=== PATIENT | male | born 1940 | race Caucasian/White ===

== ENCOUNTER 2021-07-19 17:18 | Emergency (ER) | payer MEDICARE ==
[~2021-07-19] VITALS: Ht 177.8 cm; Wt 100.0 kg
[~2021-07-19 17:18] MED LIST: ACTOS45 MG OR; BL ADULT ASA81 MG OR; CENTRUM OR; CIALIS5 MG PO; CIPRO500 MG OR; COREG6.25 MG PO; DESONIDE0.05 % EX; DIOVAN HCT160 MG/25 OR; FIORICET PO; FLUTICASONE50 MCG; GLYBURIDE2.5 MG OR; LANTUS SOL100 UNIT/M SC; LOSARTAN POTASS50 MG PO; MACRODANTIN100 MG; MAREPA1000 MG OR; METFORMIN1000 MG OR; PRAVASTATIN40 MG PO; PROZAC20 MG PO; RELPAX40 MG OR; TAMSULOSIN0.4 MG PO; VERAPAMIL OR; VIAGRA100 MG OR
[2021-07-19 19:06] LABS: HEMOGLOBIN 11.2 g/dl (14.0-18.0); IMMATURE GRANULOCYTES 0.2 % (0.0-5.0); MEAN CELL VOLUME 85.2 fL CALC (80.0-100.0); MEAN CORPUSCULAR HGB 27.1 pG CALC (26.0-32.0); MEAN CORPUSCULAR HGB CONC 31.8 g/dL CAL (32.0-36.0); NEUT# 4.81 thou/uL (1.82-7.42); RED BLOOD COUNT 4.13 mill/uL (4.70-6.10); RED CELL DISTRI WIDTH 14.9 % (11.5-15.5)
[2021-07-19 19:09] LABS: HEMATOCRIT 35.2 % (39.0-50.0)
[2021-07-19 19:24] LABS: ALBUMIN 3.6 g/dL (3.2-5.0); ALKALINE PHOSPHATASE 74 u/l (38-126); ANION GAP 8 (6-22 (CALC)); BUN 39 mg/dL (8-23); BUN/CREATININE RATIO 21 (12-20 (CALC)); CARBON DIOXIDE 34 mmol/l (22-30); CHLORIDE 99 mmol/l (95-108); CREATININE 1.8 mg/dL (0.7-1.3); GFR 37 ML/MIN (>=60 (CALC)); GFR FOR AFR.AMER. 44 ML/MIN (>=60 (CALC)); SGOT/AST 31 u/l (19-48); SODIUM 137 mmol/l (137-146); TOTAL PROTEIN 6.2 g/dL (6.3-8.2)
[2021-07-19 19:26] LABS: BILIRUBIN, TOTAL 0.3 mg/dL (0.0-1.4)
[2021-07-19 19:35] LABS: MYOGLOBIN 90 ng/mL (0 - 121)
[2021-07-19 20:05] VITALS: BP 154/69
== END 2021-07-19 20:25 | disposition home or self-care (01) ==
LOC: ED 17:18
PROVIDERS: Family Medicine
DX: I95.1 Orthostatic hypotension (principal); N17.9 Acute kidney failure, unspecified; I10 Essential (primary) hypertension; I48.91 Unspecified atrial fibrillation; Z95.0 Presence of cardiac pacemaker

== ENCOUNTER 2021-07-22 10:00 | Observation (INO) | payer MEDICARE ==
[~2021-07-22] VITALS: Ht 177.8 cm; Wt 100.0 kg
--- NOTE | 2021-07-22 10:05 | NUR ---
PATIENT TO ROOM VIA WHEELCHAIR.
--- NOTE | 2021-07-22 11:00 | NUR ---
Reassessment of patient completed. No distress noted.
[2021-07-22] MEDS ORDERED: FUROSEMIDE20 MG PO (11:13)
[2021-07-22] MEDS ORDERED: ELIQUIS5 MG PO (11:13)
[2021-07-22] MEDS ORDERED: TAMSULOSIN0.4 MG PO (11:14)
[2021-07-22 11:15] LABS: HEMATOCRIT 37.2 % (39.0-50.0); HEMOGLOBIN 11.7 g/dl (14.0-18.0); IMMATURE GRANULOCYTES 0.3 % (0.0-5.0); MEAN CELL VOLUME 86.7 fL CALC (80.0-100.0); MEAN CORPUSCULAR HGB 27.3 pG CALC (26.0-32.0); MEAN CORPUSCULAR HGB CONC 31.5 g/dL CAL (32.0-36.0); NEUT# 4.82 thou/uL (1.82-7.42); RED BLOOD COUNT 4.29 mill/uL (4.70-6.10)
[2021-07-22] MEDS ORDERED: CORDARONE/PACE100 MG PO (11:16)
[2021-07-22] MEDS ORDERED: FISH OIL1000 MG PO (11:21)
[2021-07-22] MEDS ORDERED: NORVASC5 M1 PO (11:22)
[2021-07-22] MEDS ORDERED: AMITRIPTYLINE H10 MG PO (11:23)
[2021-07-22 11:29] LABS: ALBUMIN 3.8 g/dL (3.2-5.0); ALKALINE PHOSPHATASE 63 u/l (38-126); AMYLASE 73 u/l (30-110); ANION GAP 9 (6-22 (CALC)); BUN 27 mg/dL (8-23); BUN/CREATININE RATIO 17 (12-20 (CALC)); CARBON DIOXIDE 33 mmol/l (22-30); CHLORIDE 100 mmol/l (95-108); CREATININE 1.6 mg/dL (0.7-1.3); GFR 42 ML/MIN (>=60 (CALC)); GFR FOR AFR.AMER. 51 ML/MIN (>=60 (CALC)); LIPASE 47 u/l (23-300); POTASSIUM 4.5 mmol/l (3.5-5.1); SGOT/AST 31 u/l (19-48); SODIUM 137 mmol/l (137-146); TOTAL PROTEIN 6.6 g/dL (6.3-8.2)
[2021-07-22 11:31] LABS: BILIRUBIN, TOTAL 0.5 mg/dL (0.0-1.4)
[2021-07-22 11:42] LABS: ACT PARTIAL THROMBO TIME 28.1 SECONDS (20.0-32.5); INTERNATIONAL NORMALIZED RATIO 1.1 RATIO (0.7-1.3); PROTHROMBIN TIME 11.6 SECONDS (9.0-12.5)
--- NOTE | 2021-07-22 12:00 | NUR ---
Reassessment of patient completed. No distress noted.
[2021-07-22] MEDS ORDERED: FLUOXETINE20 MG PO (12:42)
--- NOTE | 2021-07-22 13:00 | NUR ---
Reassessment of patient completed. No distress noted.
--- NOTE | 2021-07-22 14:00 | NUR ---
Reassessment of patient completed. No distress noted.
--- NOTE | 2021-07-22 15:00 | NUR ---
Reassessment of patient completed. No distress noted.
--- NOTE | 2021-07-22 16:00 | NUR ---
Reassessment of patient completed. No distress noted.
--- NOTE | 2021-07-22 17:00 | NUR ---
Reassessment of patient completed. No distress noted.
--- NOTE | 2021-07-22 17:02 | NUR ---
REPORT REC FROM YANG EUBANKS
--- NOTE | 2021-07-22 17:20 | NUR ---
Patient decides to leave AMA. Multiple attempts made to ecourage patient to remain here for continued treatment. Explained to patient all risks of leaving against medical advice including . Pt verbalized understanding of all risks. Pt also encouraged to return to [facility] at any time, especially if symptoms continue or become worse. Pt verbalized understanding. PATIENT PROVIDED WITH 3 ORANGE JUICES AND AN APPLE JUICE THAT HE CONSUMED BEFORE LEAVING. OFFERED A TRAY IF HE WOULD WAIT FOR A MINUTE BUT HE REFUSED. AMBULATED TO LOBBY WITH STEADY GAIT, ALERT AND ORIENTED, NO ACUTE DISTRESS.
[2021-07-22 17:59] VITALS: BP 165/79
== END 2021-07-22 17:20 | disposition left against medical advice (07) ==
LOC: ED 10:00 → ED-I 11:40 → ED 12:04 → ED-I 12:05 → MS2 14:50
PROVIDERS: ADMIT Internal Medicine; ATTEND Internal Medicine
DX: R07.9 Chest pain, unspecified (principal); I11.0 Hypertensive heart disease with heart failure; I50.9 Heart failure, unspecified; E11.9 Type 2 diabetes mellitus without complications; I48.91 Unspecified atrial fibrillation; I49.5 Sick sinus syndrome; E78.5 Hyperlipidemia, unspecified; Z79.4 Long term (current) use of insulin; Z95.0 Presence of cardiac pacemaker; Z79.01 Long term (current) use of anticoagulants; Z20.822 Contact with and (suspected) exposure to COVID-19

== ENCOUNTER 2021-07-25 21:22 | Emergency (ER) | payer MEDICARE ==
[~2021-07-25] VITALS: Ht 177.8 cm; Wt 100.0 kg
[~2021-07-25 21:22] MED LIST changes: +AMITRIPTYLINE H10 MG PO; +CORDARONE/PACE100 MG PO; +ELIQUIS5 MG PO; +FISH OIL1000 MG PO; +FLUOXETINE20 MG PO; +FUROSEMIDE20 MG PO; +NORVASC5 M1 PO
[2021-07-25 22:36] LABS: HEMATOCRIT 37.7 % (39.0-50.0); HEMOGLOBIN 11.8 g/dl (14.0-18.0); IMMATURE GRANULOCYTES 0.3 % (0.0-5.0); MEAN CELL VOLUME 87.1 fL CALC (80.0-100.0); MEAN CORPUSCULAR HGB 27.3 pG CALC (26.0-32.0); MEAN CORPUSCULAR HGB CONC 31.3 g/dL CAL (32.0-36.0); NEUT# 11.36 thou/uL (1.82-7.42); RED BLOOD COUNT 4.33 mill/uL (4.70-6.10); RED CELL DISTRI WIDTH 14.9 % (11.5-15.5)
[2021-07-25 22:54] LABS: ACT PARTIAL THROMBO TIME 29.2 SECONDS (20.0-32.5); INTERNATIONAL NORMALIZED RATIO 1.1 RATIO (0.7-1.3); PROTHROMBIN TIME 11.4 SECONDS (9.0-12.5)
[2021-07-25 22:55] LABS: ALBUMIN 3.9 g/dL (3.2-5.0); ALKALINE PHOSPHATASE 68 u/l (38-126); AMYLASE 119 u/l (30-110); ANION GAP 12 (6-22 (CALC)); BILIRUBIN, TOTAL 0.5 mg/dL (0.0-1.4); BUN 33 mg/dL (8-23); BUN/CREATININE RATIO 18 (12-20 (CALC)); CARBON DIOXIDE 36 mmol/l (22-30); CHLORIDE 101 mmol/l (95-108); CREATININE 1.8 mg/dL (0.7-1.3); ETHYL ALCOHOL 0 mg/dl (0-30); GFR 37 ML/MIN (>=60 (CALC)); GFR FOR AFR.AMER. 44 ML/MIN (>=60 (CALC)); LIPASE 66 u/l (23-300); POTASSIUM 4.9 mmol/l (3.5-5.1); SGOT/AST 47 u/l (19-48); SODIUM 144 mmol/l (137-146); TOTAL PROTEIN 7.1 g/dL (6.3-8.2)
[2021-07-26 01:49] LABS: URINE BILIRUBIN - DIPSTICK NEGATIVE (NEGATIVE); URINE BLOOD DIPSTICK TRACE-INTACT (NEGATIVE); URINE COLOR YELLOW; URINE GLUCOSE - DIPSTICK NEGATIVE (NEGATIVE); URINE KETONE NEGATIVE (NEGATIVE); URINE LEUK ESTERASE NEGATIVE (NEGATIVE); URINE NITRITE - DIPSTICK NEGATIVE (Negative); URINE PROTEIN - DIPSTICK NEGATIVE (NEG-TRACE); URINE UROBILINOGEN - DIPSTICK 0.2 E.U./dL (0.2)
[2021-07-26 03:49] VITALS: BP 159/66
== END 2021-07-26 04:00 | disposition short-term general hospital (02) ==
LOC: ED 21:22
DX: A04.72 Enterocolitis due to Clostridium difficile, not specified as recurrent (principal); K92.1 Melena; I10 Essential (primary) hypertension; I48.91 Unspecified atrial fibrillation; Z95.0 Presence of cardiac pacemaker; Z79.01 Long term (current) use of anticoagulants; Z20.822 Contact with and (suspected) exposure to COVID-19
CPT/HCPCS: Q9967